=== PATIENT | female | born 1960 | race Caucasian/White ===

== ENCOUNTER 2023-03-19 07:28 | Day surgery (SDC) | payer OTHER, SELFPAY ==
[2023-03-12 15:25] VITALS: BMI 40.6
[2023-03-19] VITALS (7 sets, daily range): BP systolic 90–138; BP diastolic 30–77; PULSE 61–698; RESP 8–20; TEMP 35.7–36.2; O2SAT 96–99; BMI 40.6
--- NOTE | 2023-03-19 | DI.RAD.S_ITS ---
PROCEDURE: XR LUMBAR SPINE 2-3V INDICATIONS: L4-5 LAMINECTOMY TECHNIQUE: 2 fluoroscopic views of the lumbar spine were acquired. COMPARISON: None. FINDINGS: Bones: Intraoperative fluoroscopic images during laminectomy. Degenerative changes of the lumbar spine. IMPRESSION: Intraoperative fluoroscopic images during laminectomy. Degenerative changes of the lumbar spine. Dictated by: Adryan Lyons M.D. on 03/19/2023 at 10:26 Approved by: Adryan Lyons M.D. on 03/19/2023 at 10:28
[2023-03-19] MEDS: LACTATED RINGERS 1,000 ML 84 ML IV (08:25)
--- NOTE | 2023-03-19 08:31 | PM.PREOP ---
Pre-operative Note COVID-19 Criteria for continued procedure: Expected advancement of disease process, Possibility delay results in more complex future surgery or treatment, Increased loss of function, Continuing or worsening of significant or severe pain, Deterioration of the patient's condition or overall health and Delay expected to result in less-positive ultimate med/surg outcome Interval Note History & Physical reviewed/Exam performed by Physician: Yes Changes to H&P: No
[2023-03-19] MEDS: CEFAZOLIN 2 GM/100 ML PREMIX 100 ML IV (08:55)
--- NOTE | 2023-03-19 09:08 | SUR.OPER ---
Prone on spine table, head in foam head support, padded chest and pelvic supports, gel pad at knees, lower legs supported by pillows; nipples, genitalia and toes free of pressure, arms secured on foam padded arm boards at <90 degrees abduction. Tape over blanket at thigh secured to table.
[2023-03-19] MEDS: BUPIVACAINE 0.25% W/ EPI (PF) 10 ML VIAL 30 ML INJ (09:14)
--- NOTE | 2023-03-19 09:48 | PM.OP.1 ---
Operative Date/Time/Diagnoses Date of procedure: 03/19/23 Time of procedure: 08:40 Pre-op diagnosis: 1. L4-5 spinal stenosis with radiculopathy Post-op diagnosis: same Procedure & Clinicians Procedure: 1. L4-5 laminectomy with partial facetectomies Same procedure as scheduled: Yes Indications: Patient has been having chronic back pain and worsening lumbar radiculopathy. Patient failed multiple conservative management with worsening pain weakness and numbness in her lower extremity. Patient has been having difficulty performing activity of daily living. After discussing risks benefits of treatment options, patient elected proceed with surgery. Surgeon: Ingrid Miranda Steamfitter Supervisor: Corina Robles Click Yes if Unassisted: No Anesthesia Type: General Operative Notes Closure Type: primary Specimen(s): none sent Estimated Blood Loss (mL): 5 Blood products transfused: none Procedure in detail: Patient was seen in the preoperative area. Risks and benefits of the surgery was discussed with the patient. Informed consent was obtained from the patient and placed in the chart. Surgical site was marked. Patient was taken to the operative room. General anesthesia was administered. Prophylactic antibiotic was given to the patient less than 30 min before the incision was made. Patient was placed into a prone position on the Damon table. Patient's back was then prepped and draped in the sterile fashion. Time-out was performed at this time. Using AP and lateral C-arm imaging the interval between L4-5 was identified and marked on patient's back. A 1 inch incision 1 in from midline was made on the right side. The fascia was incised in line with skin incision. Globus MARS retractors was placed inside the incision and docked onto the L4 lamina. Using microsurgical technique and operating microscope, a L4 laminectomy was performed using a Kerrison rongeur. Liagamentum flavum was resected at the site of the laminotomy. Either side of the dura was exposed. Bilateral partial facetcomies was performed to further decompress the lateral recess. After the laminectomy was completed, the area medial lateral superior and inferior to the area of the laminectomy was inspected and explored using a micro curette. No other impinging structure was identified. The wound was then irrigated with sterile normal saline. 40 mg Depo-Medrol was placed into the epidural space. The deep fascia was closed with 1-0 Vicryl. The subcutaneous tissue was closed with 2-0 Vicryl. The skin was closed with 4-0 Monocryl. Patient tolerated the procedure well. There were no complications. Patient was transferred recovery room in stable condition. The Operation could not have been safely performed without compromising the technical result or length of the procedure, without the assistance of a skilled neurosurgical nurse practitioner. The neurosurgical nurse practitioner was medically necessary for proper positioning, retraction and manipulation of instruments, proper exposure, surgical preparation, and manipulation of tissue. Complications: none Post-operative Condition: stable Disposition: PACU Plan for aftercare: Discharge to home
[2023-03-19] MEDS: OXYCODONE IR 5 MG TABLET PO (10:19)
[2023-03-19] MEDS: ONDANSETRON 4 MG/2 ML INJ IV (10:55)
== END 2023-03-19 11:20 | disposition home or self-care (01) ==
PROVIDERS: PCP Family Medicine; Referring Provider Orthopaedic Surgery Orthopaedic Surgery of the Spine; Visit Provider Orthopaedic Surgery Orthopaedic Surgery of the Spine
PROC: (CPT 63047; principal; 2023-03-19 08:45)
DX: M48.062 Spinal stenosis, lumbar region with neurogenic claudication (principal); M54.16 Radiculopathy, lumbar region
CPT/HCPCS: 63047; 72100; 76000; J0330; J0690; J1100; J1170; J2405; J2704; J2920; J3010

== ENCOUNTER → 2023-08-14 12:22 | Outpatient (CLI) | payer OTHER, SELFPAY ==
--- NOTE | 2023-08-14 | DI.RAD.S_ITS ---
PROCEDURE: FL JOINT INJECTION LARGE LT INDICATIONS: Unilateral primary osteoarthritis, left hip COMPARISON: None. TECHNIQUE: The indications, alternatives, benefits, risks, and complications of the procedure were explained to the patient. Written informed consent was obtained and placed in the chart. The patient was placed in an appropriate position on the fluoroscopy table, and a site was chosen for percutaneous access under fluoroscopic guidance. The site was prepped and draped in a sterile fashion. Local anesthetic was administered using a 1% lidocaine solution. A hypodermic or spinal needle was then used to access the symptomatic joint. Intra-articular location of the needle tip was confirmed by injecting a small amount of contrast, followed by steroid administration. The needle was then withdrawn, and a bandage applied to the puncture site. FINDINGS: Joint injected: left hiop Medications injected: 4 mL of 40 mg/mL Kenalog and 0.5% Ropivacaine mixture. Patient's pain before injection: 7 out of 10. Patient's pain after injection: 3 out of 10. Complications: None. IMPRESSION: Successful fluoroscopically guided administration of steroid and anaesthetic solution into the left hip joint. Dictated by: Caesar Mattson M.D. on 08/15/2023 at 18:09 Approved by: Caesar Mattson M.D. on 08/15/2023 at 18:10
[2023-08-14] MEDS: LIDOCAINE 1% 20 ML INJ (13:33)
[2023-08-14] MEDS: ROPIVACAINE 0.5% PF 5 MG/ML 20ML VIAL 20 ML INJ (13:35)
[2023-08-14] MEDS: TRIAMCINOLONE 40 MG/ML VIAL INTRA-ARTI (13:35)
== END ==
LOC: RAD 12:23
PROVIDERS: Referring Provider Orthopaedic Surgery; Visit Provider Orthopaedic Surgery
DX: M16.12 Unilateral primary osteoarthritis, left hip (principal)
CPT/HCPCS: 20610; 77002

== ENCOUNTER → 2024-03-05 16:54 | Outpatient (CLI) | payer OTHER, SELFPAY ==
--- NOTE | 2024-03-05 16:56 | DI.MRI.S_ITS ---
PROCEDURE: MR LUMBAR SPINE WO CON INDICATIONS: SPINAL STENOSIS, LUMBAR REGION TECHNIQUE: Noncontrast sagittal T1 spin echo and T2 fast echo, sagittal STIR, and T2 fast spin echo through the lumbar spine. In cases with scoliosis, additional coronal T2 fast spin echo may be performed. COMPARISON: None. FINDINGS: Image quality: Excellent. Alignment and Curvature: Minimal retrolisthesis of L5-S1. There is straightening of lumbar lordosis. Bone Marrow: Marrow is of normal overall signal. There is an acute/subacute compression deformity the L1 vertebral body along its superior endplate resulting in approximately 25% height loss. Spinal Cord: Conus medullaris terminates at the L1 no level. Visualized cord demonstrates normal signal and size. Paraspinous Soft Tissues: No paravertebral masses. Renal cysts are seen within the left kidney measuring up to 6 mm. T12-L1: No spinal canal stenosis. No significant foraminal stenosis. There is bilateral facet arthropathy. L1-L2: No spinal canal stenosis or foraminal stenosis. There is bilateral facet arthropathy and ligamentum flavum hypertrophy. L2-L3: Dorsal disc bulge and ligamentum flavum hypertrophy result in mild narrowing of the spinal canal. Mild narrowing of the right foramen. The left foramen is patent. L3-L4: Dorsal disc bulge. No significant foraminal stenosis. There is bilateral facet arthropathy and ligamentum flavum hypertrophy. L4-L5: Dorsal disc bulge and ligamentum flavum hypertrophy results in mild narrowing of the spinal canal. Mild narrowing of the left foramen. The right neural foramen is patent. There is bilateral facet arthropathy. L5-S1: Dorsal disc bulge mildly effaces the ventral thecal sac. No foraminal stenosis. There is bilateral facet arthropathy and ligamentum flavum hypertrophy. IMPRESSION: 1. There is an acute/subacute compression deformity of the superior endplate of L1 resulting in approximately 25% height loss. 2. No significant spinal canal stenosis or foraminal stenosis. Dictated by: Patricio Mejia M.D. on 03/15/2024 at 12:19 Approved by: Patricio Mejia M.D. on 03/15/2024 at 12:43
== END ==
LOC: MRI 16:55
PROVIDERS: Referring Provider Orthopaedic Surgery Orthopaedic Surgery of the Spine; Visit Provider Orthopaedic Surgery Orthopaedic Surgery of the Spine
DX: M48.062 Spinal stenosis, lumbar region with neurogenic claudication (principal); M47.816 Spondylosis without myelopathy or radiculopathy, lumbar region; M43.8X6 Other specified deforming dorsopathies, lumbar region; N28.1 Cyst of kidney, acquired
CPT/HCPCS: 72148

== ENCOUNTER → 2025-02-16 15:51 | Outpatient (CLI) | payer OTHER, SELFPAY ==
--- NOTE | 2025-02-16 16:13 | EKG_ITS ---
[address] [address] Test Date: 2025-02-16 Pat Name: Nicci Galvez Department: [facility] Room: Gender: Female Retail Account Executive: ZOË : 1960 Requested By: Order Number: [id number] Reading MD: Ángel Mckinnon MD Measurements Intervals [place] Rate: 76 P: 64 VT: 182 QRS: 18 QRSD: 94 T: 24 QT: 398 QTc: 447 Interpretive Statements Normal sinus rhythm Electronically Signed On 02-17-2025 7:30:55 PDT by Ángel Mckinnon MD
[2025-02-16 16:19] LABS: Add Manual Diff / Slide Review NO; Hematocrit 37.8 % (36-46); Hemoglobin 12.6 g/dL (12.0-16.0); Lymphocytes Absolute Auto 2200 /uL (1100-4500); Mean Corpuscular HGB Conc 33.2 % (30-36); Mean Corpuscular Hemoglobin 26.1 PG (26-34); Mean Corpuscular Volume 78.7 fL (80-100); Platelet Count 417 X10^3/uL (150-400)
[2025-02-16 17:05] LABS: Hemoglobin A1C% w Est Avg Glu 5.8 % (4.0-6.0)
[2025-02-16 17:28] LABS: Vitamin D 25 Hydroxy (D3) 58.7 ng/mL (30.0-100.0)
[2025-02-16 22:12] LABS: Albumin 4.3 g/dL (3.5-5.0); Blood Urea Nitrogen 12 mg/dL (7-17); Calcium 9.2 mg/dL (8.4-10.2); Carbon Dioxide 28 mmol/L (22-32); Chloride 100 mmol/L (98-107); Estimated Glomerular Filt Rate > 60 mL/min (>60); Glucose 140 mg/dL (70-99); HEMOLYSIS < 15 (0-50); Potassium 4.0 mmol/L (3.4-5.1); Sodium 136 mmol/L (137-145)
[2025-02-16 22:19] LABS: Prealbumin 22.4 mg/dL (17.6-36.0)
== END ==
PROVIDERS: PCP Family Medicine; Referring Provider Orthopaedic Surgery Adult Reconstructive Orthopaedic Surgery; Visit Provider Orthopaedic Surgery Adult Reconstructive Orthopaedic Surgery
DX: Z01.812 Encounter for preprocedural laboratory examination (principal)
CPT/HCPCS: 36415; 80048; 82040; 82306; 83036; 84134; 85025; 93005

== ENCOUNTER → 2025-04-27 19:17 | Outpatient (CLI) | payer OTHER, SELFPAY ==
--- NOTE | 2025-04-27 19:19 | DI.MRI.S_ITS ---
PROCEDURE: MR LUMBAR SPINE WO CON INDICATIONS: HX OF LAMINECTOMY TECHNIQUE: Noncontrast sagittal T1 spin echo and T2 fast echo, sagittal STIR, and T2 fast spin echo through the lumbar spine. In cases with scoliosis, additional coronal T2 fast spin echo may be performed. COMPARISON: [facility], MR, MR LUMBAR SPINE WO CON, 03/05/2024, 17:46. FINDINGS: Alignment and Curvature: There is normal bony alignment. Bone Marrow: L1 compression fracture, unchanged from. Multilevel degenerative endplate changes Spinal Cord: Conus medullaris terminates at the L1 level. Visualized cord demonstrates normal signal and size. Paraspinous Soft Tissues: No paravertebral masses. T12-L1: Normal appearance. L1-L2: Normal appearance. L2-L3: Disc bulge and arthropathy. Dorsal epidural fat. Moderate central stenosis. No foraminal stenosis L3-L4: Disc bulge and arthropathy. Dorsal epidural fat. Moderate to severe central stenosis. No foraminal stenosis L4-L5: Disc bulge and arthropathy. Dorsal epidural fat. Moderate central stenosis. Moderate right and mild left foraminal stenosis L5-S1: Disc bulge and arthropathy. No central stenosis. Moderate left and mild right foraminal stenosis IMPRESSION: Multilevel degenerative disc disease, epidural lipomatosis and arthropathy results in varying degrees of central and foraminal stenosis including moderate to severe central stenosis at L3-4 Approved by: Paulino Corrales M.D. on 04/28/2025 at 10:44
== END ==
LOC: MRI 19:17
PROVIDERS: PCP Family Medicine; Referring Provider Physician Assistant Surgical; Visit Provider Physician Assistant Surgical
DX: M47.26 Other spondylosis with radiculopathy, lumbar region (principal); M47.27 Other spondylosis with radiculopathy, lumbosacral region; M51.16 Intervertebral disc disorders with radiculopathy, lumbar region; M51.17 Intervertebral disc disorders with radiculopathy, lumbosacral region; M48.061 Spinal stenosis, lumbar region without neurogenic claudication; M48.07 Spinal stenosis, lumbosacral region; E88.2 Lipomatosis, not elsewhere classified; R26.81 Unsteadiness on feet; Z98.890 Other specified postprocedural states
CPT/HCPCS: 72148

== ENCOUNTER 2025-05-23 06:05 | Day surgery (SDC) | payer OTHER, SELFPAY ==
[2025-05-16 07:53] VITALS: BMI 39.5
[2025-05-23] VITALS (15 sets, daily range): BP systolic 117–155; BP diastolic 60–78; PULSE 59–78; RESP 12–18; TEMP 35.8–36.9; O2SAT 91–100; BMI 39.5
--- NOTE | 2025-05-23 | DI.RAD.S_ITS ---
PROCEDURE: XR HIP W PEL IF DONE RT 2V INDICATIONS: RT MEG TECHNIQUE: Four views of each hip were acquired. COMPARISON: None. FINDINGS: Bones: There are no osseous abnormalities. SI and hip joints: Bilateral total hip prostheses are anatomically aligned. Soft tissues: No soft tissue swelling, calcification or mass. IMPRESSION: Bilateral total hip prostheses in anatomic alignment. No complication Dictated by: Ángel Pacheco M.D. on 05/24/2025 at 9:35 Approved by: Ángel Pacheco M.D. on 05/24/2025 at 9:35
[2025-05-23] MEDS: LACTATED RINGERS 1,000 ML 42 ML IV (07:16)
[2025-05-23] MEDS: SCOPOLAMINE 1 PATCH TOP (07:16)
--- NOTE | 2025-05-23 07:46 | P.HP_ITS ---
History of Present Illness History of Present Illness Chief complaint: Right MEG Anterior SDC Narrative: CHIEF COMPLAINT I'm here for my right total knee arthroplasty. SUBJECTIVE The patient has been experiencing severe right knee pain which has been refractory to multiple nonoperative modalities. The patient has expressed a preference for not using strong pain medications such as oxycodone unless it is absolutely necessary and only for breakthrough pain. The patient has also indicated that they have had medical anxiety and panic attacks in the past, which they have not typically discussed with others. The patient has been managing pain with Tylenol, baby aspirin, and Celebrex. The patient is concerned about potential medication interactions, particularly those that might affect mental function. SOCIAL HISTORY - The patient is involved in a [employer] group every Friday. PERTINENT PMH - History of medical anxiety and panic attacks. PRIOR HIP/KNEE PROCEDURES None PHYSICAL EXAM Knee Exam: No open wounds. TTP around knee. SILT L2-S1 ASSESSMENT Severe right knee osteoarthritis refractory to conservative management, necessitating right total knee arthroplasty. PLAN The patient is scheduled for a right total knee arthroplasty. I discussed the medication regimen postoperatively, including the use of Tylenol, baby aspirin, and Celebrex. The patient is advised to avoid strong pain medications unless necessary for breakthrough pain. I provided instructions on physical activity post-surgery, emphasizing the importance of ambulation to prevent blood clots while limiting steps to less than 1,000 per day initially. - Schedule for right total knee arthroplasty. - Continue baby aspirin and Celebrex as discussed. - Use Tylenol as needed up to 3,000 mg per day. - Avoid oxycodone unless breakthrough pain occurs. - Follow postoperative physical therapy instructions. SURGICAL PLAN The patient has exhausted, conservative measures and is likely a candidate for total knee arthroplasty. We will begin the preoperative optimization process in anticipation of eventually scheduling surgery. We will ensure that the patient is an appropriate candidate for this surgery by evaluating their laboratory results, EKG, baseline medical conditions and medications prior to scheduling the surgery. The risks and benefits of major elective surgery in the form of a knee replacement were discussed today in detail with the patient. All of the patient's questions were answered. Additional patient education materials regarding the risks, benefits, and outcomes associated with total knee arthroplasty were provided to the patient in an online patient counseling series which can be viewed at the following link: [email or web address]. There are both medical and surgical risks associated with total knee replacements and these have been outlined in detail to the patient. These medical risks include DVT/blood clots which can sometimes travel to the lung and be lethal as well as pneumonia, heart attacks, acute kidney injuries and other medical complications. The most serious surgical complication is a periprosthetic joint infection which can be very difficult to treat and requires repeat surgery. The 5 year mortality of a periprosthetic joint infection is 25% in some studies. The most common reasons for repeat knee surgery - also known as revision surgery - have also been provided to the patient with data from the [place] Joint Replacement Registry. We have also discussed that other less common medical and surgical complications can occur. Additionally, we have reviewed the patient satisfaction rate of 85% with total knee arthroplasty which means that even if there are no major complications with their knee replacement there is a 15% risk they will not be satisfied with their final result. I encouraged the patient to followup with additional questions at future visits after they have had time to review and consider the risks and benefits of this surgery before moving forward with it. PLANNED SURGICAL PROCEDURE AND IMPLANTS: Right total knee arthroplasty using cemented Michel Persona with unresurfaced patella PERIOPERATIVE CONSIDERATIONS: - Monitor for anxiety during perioperative period. - Avoid opioids unless there is breakthrough pain. POSTOPERATIVE DVT PROPHYLAXIS: Aspirin 81 mg BID XRAYS AT NEXT VISIT: Long-leg scanogram PLAIN LANGUAGE SUMMARY We are planning for your right total knee replacement surgery. You've tried many treatments already, and this surgery should help relieve your knee pain. We'll make sure you're ready for surgery by checking your medical conditions and medication. After surgery, you'll take baby aspirin to prevent blood clots and continue with your current pain management plan. Avoid using oxycodone unless absolutely necessary. We'll start gentle movements and slowly increase activity to help with healing while avoiding too many steps at first. If you have any questions, feel free to ask at your follow-up visits. FOLLOWUP - Follow up as needed with no specific imaging required unless otherwise indicated. [facility], LAT[facility] Medical History (Updated 05/17/25 @ 14:54 by Stormy Morrison RN) SOTEOR on CPAP Anesthesia complication Osteoporosis GERD (gastroesophageal reflux disease) Rheumatoid arthritis Back pain Melanoma IBS (irritable bowel syndrome) Allergies HTN (hypertension) Pre-diabetes Surgical History (Updated 05/16/25 @ 08:55 by Stormy Morrison RN) Hx of colonoscopy Hx of arthroscopy of shoulder Hx of cholecystectomy History of total left hip replacement (07/21/24) Hx of laminectomy (03/19/23) H/O tubal ligation Hx of breast reduction, elective H/O nasal septoplasty Social History household members: spouse Smoking Status: Never smoker alcohol intake: current Meds Home Medications and Allergies Home Medications ?Medication ?Instructions ?Recorded ?Confirmed ?Type hydrochlorothiazide 25 mg tablet 25 mg PO DAILY 05/23/25 History losartan 25 mg tablet 25 mg PO DAILY 03/12/2302/09 History multivitamin 1 tab PO DAILY 03/12/23 09/2 05/12 History meloxicam 7.5 mg tablet 7.5 mg PO DAILY PRN post-op pain 05/04/25 05/16/25 Rx #30 tabs pantoprazole 40 mg tablet,delayed 40 mg PO DAILY Take while using 05/04/25 05/16/25 Rx release Meloxicam/Mobic #30 tabs fexofenadine 180 mg tablet 180 mg PO DAILY 05/16/25 History fluconazole 100 mg tablet 100 mg PO DIRECTED 05/23/25 History losartan 50 mg-hydrochlorothiazide 1 tab PO DAILY bloo d pressure 05/16/25 05/23/25 History 12.5 mg tablet Allergies Allergy/AdvReac Type Severity Reaction Status Date / Time Latex, Natural Rubber Allergy Intermediate Rash Verified 05/23/25 07:07 Exam Vital Signs (past 8 hours): - 05/23/25 06:56 Temperature 97.2 F L Pulse Rate 67 Respiratory Rate 16 Blood Pressure 139/75 Pulse Oximetry 97 Oxygen Delivery Method Room Air Oxygen Delivery Method Room Air Assessment & Plan Time-Based Coding :: [TOTAL MINUTES] spent with patient and on the chart (including review of chart, obtaining history, exam, reviewing outside data, placing orders, documenting exam and treatment plan, and counseling patient) on [DATE]. PROFEE Lens Inspector Document charge(s): No
--- NOTE | 2025-05-23 07:47 | PM.PREOP ---
Pre-operative Note Interval Note History & Physical reviewed/Exam performed by Physician: Yes Changes to H&P: No
--- NOTE | 2025-05-23 07:56 | DI.RAD.S_ITS ---
PROCEDURE: XR HIP W PEL IF DONE RT 2V INDICATIONS: MEG TECHNIQUE: AP pelvis and lateral view of the hip acquired. COMPARISON: [facility], CR, XR HIP W PEL RT 2V, 05/23/2025, 8:58. FINDINGS: Bones: Patient is status post right hip arthroplasty, with hardware components in expected positions. The hip joint appears congruent. The visualized bony structures appear intact. Status post prior left hip arthroplasty with prosthetic components in appropriate position. Soft tissues: Overlying postoperative changes are noted. No suspicious soft tissue densities. IMPRESSION: Expected post-operative appearance of interval right hip arthroplasty. Approved by: Lyndsey Nails M.D.,Ph.D. on 05/23/2025 at 11:16
[2025-05-23] MEDS: ACETAMINOPHEN IV 1,000 MG/100 ML VIAL 400 MG IV (08:22)
--- NOTE | 2025-05-23 08:46 | SUR.OPER ---
Supine on padded [address] [place] table with bilateral legs secured in padded positioning boots and suspended in positioning spars, operative leg in traction per surgeon. Head on one pillow. both arms on n secured on padded armboard <90 degrees abduction. . Padded perineal post in place per surgeon.
[2025-05-23] MEDS: KETOROLAC 30 MG/ML VIAL 15 MG INJ (08:56)
--- NOTE | 2025-05-23 09:57 | P.OP_ITS ---
Operative Date/Time/Diagnoses Date of procedure: 05/23/25 Time of procedure: 07:45 Pre-op diagnosis: Right hip osteoarthritis Post-op diagnosis: same Procedure & Clinicians Procedure: Right total hip arthroplasty Same procedure(s) as scheduled: Yes Surgeon: Paulino Herbert Assisted?: Yes Forensic Specialist: Lynsey Easton Anesthesia Type: General and Local Operative Notes Findings: Severe arthritis Closure Type: primary Applied: implant(s) Estimated Blood Loss (mL): 300 Procedure in detail: 1. Right Uncemented Direct Anterior Michel Total Hip Arthroplasty (71631) 2. Computer-Assisted Musculoskeletal Surgical Navigational Orthopedic Procedure Using Fluoroscopic Image Guidance (0054T) Implants: * G7 PPS size 56 cup? * Stevenson femoral stem size 21-125 * 36 mm -3.5 ceramic femoral head? Procedure Summary: This 64-year-old female patient had previously undergone a contralateral total hip arthroplasty. I noted on her preoperative imaging that she had a highly valgus neck shaft angle in her femur. I therefore utilized a Stevenson cone during today's surgery in order to restore her valgus anatomy. I initially trialed with a size 19 and a 0 head and noted that it was slightly long and also that it was in slight varus so I upsized to a size 21 and repeated the trialing process and downsized to a -3.5 head. The final construct had equal leg length as compared to the other side but less offset as I had intended based on her valgus neck shaft angle on the operative side. A conjoined tendon release was required for femoral access given the straight shot necessary for utilization of a Stevenson cone Procedure in Detail: This patient was seen preoperatively and evaluated for hip pain which was refractory to numerous nonoperative treatment modalities. Their hip pain correlated with radiographic changes demonstrating significant degeneration in the hip joint. The risks and benefits of continued nonoperative management versus operative management were discussed at length and all of the patient?s questions were answered. Additional educational materials providing further details beyond our discussion in clinic were provided via a publicly available patient education video which included the incidence of medical complications associated with total hip arthroplasty, reasons for revision following total hip arthroplasty, and patient satisfaction rates following total hip arthroplasty. With this understanding of the risks inherent to the procedure, the patient elected to move forward with operative management. Following preoperative optimization, the patient was scheduled for surgery. The patient was met in the preoperative holding area the day of the procedure and all questions were answered. The patient?s nares were swabbed in order to decolonize them from MRSA. Informed consent was signed and the right limb was marked with indelible ink.? The patient was brought back to the operating room where anesthesia was induced. The patient was transferred to the Nelson table and all bony prominences were padded. The operative site was prepped and draped in the usual sterile fashion. Prior to incision, tranexamic acid and cefazolin were administered. Operative templating images were displayed demonstrating the anticipated implant sizes and correct operative extremity. A timeout procedure was performed verifying the patient?s identity, medical comorbidities, allergies, relevant medications, anesthesia type and the surgical plan. All present were in agreement. The assistance of a physician automotive service assistant was required for positioning, room setup, soft tissue retraction and wound closure. Without this assistance, the procedure would have been significantly more challenging and time consuming.?? A direct anterior approach to the hip was utilized. This was performed with a longitudinal incision through a Heuter interval. The incision was planned 2 cm distal and 2 cm lateral to the ASIS extending towards the lateral patella, in line with the muscle body of the TFL. Following incision, the subcutaneous tissue was dissected while taking care to avoid injury to the lateral femoral cutaneous nerve. The fascia overlying the TFL was identified by dissecting off the overlying fat and identifying perforating vessels to the TFL. The TFL fascia was incised and dissected away from the medial border of the TFL. A retractor was placed over the superior femoral neck between the abductors and the hip capsule and used to reflect the TFL laterally. A Tyler self-retainer was then placed in the distal aspect of the wound between the TFL and the rectus femoris. This was tensioned to open up the direct anterior interval and the lateral circumflex vessels were identified and coagulated using electrocautery. The floor of the TFL fascia was incised, exposing the pericapsular fat overlying the hip capsule. A second cobra retractor was placed on the inferior femoral neck. A retractor was placed on the anterior wall of the acetabulum and used to tension the reflected head of rectus femoris, which was then released in order to limit soft tissue tension. A capsulotomy was made in the midline of the anterior hip capsule in line with the femoral neck ending at the vastus tubercle. The anterior retractor was removed as soon as the capsulotomy was completed in order to limit the amount of time that a soft tissue retractor remained on the anterior wall and limit tension on the femoral nerve. Tag stitches were placed in the superior and inferior leaflets of the hip capsule. An Araman soft tissue retractor was introduced over the tag stitches and tensioned in the interval between the rectus femoris and the TFL in order to retract and protect those muscles. The cobra retractors were replaced intracapsularly, with one over the superior neck in the pocket created by the base of the greater trochanter and the other on the femoral head. The capsulotomy was extended laterally to the base of the greater trochanter and medially to the lesser trochanter. This required externally rotating the hip. Once the lesser trochanter had been identified, a neck cut was planned according to measurements from preoperative templating. A ruler was cut at the length measured between the superior aspect of the lesser trochanter and the collar of the prosthesis. This line was extended towards the inferior aspect of the lateral cobra retractor to plan a cut which would leave minimal residual femoral neck laterally. The neck was cut at 60 degrees of external rotation along that line. A second cut was performed to remove a large napkin ring and facilitate head extraction. The napkin ring cut and femoral head were removed.?? A broad anterior wall retractor was placed between the labrum and the anterior capsule so that the anterior capsule would prevent capturing and pinching the femoral nerve anteriorly. An additional retractor was placed on the posterior wall. External rotation and traction were applied through the Nelson table so that the cut surface of the femoral neck would not restrict access to the acetabulum. The labrum was excised sharply and the pulvinar was excised with electrocautery to limit bleeding from branches of the obturator artery. Acetabular reamers were selected based on preoperative templating and measurements of the excised femoral head. These were introduced into the acetabulum. Fluoroscopy was utilized to replicate a standing AP pelvis radiograph by centering over the pelvis, rotating until there was appropriate symmetry between the obturator foramen, and introducing caudal tilt to match the position of the pubic symphysis relative to the sacrococcygeal junction according to the patient?s anatomy. Once satisfied with the reaming depth corresponding to the preoperative template and the pinch fit between the columns, an appropriate sized acetabular cup was selected which would provide 1 mm of press-fit. This cup was introduced and manipulated until appropriate abduction and anteversion angles were obtained with careful attention to appropriate abduction and anteversion angles as evaluated by the position of the cup relative to the anterior and posterior sweet of the acetabulum and the AP fluoroscopy which recreated the patient?s standing radiograph. The cup was impacted into place. Peripheral osteophytes were removed. The acetabular liner was then placed with care to ensure locking of the locking mechanism. Attention was then turned to the femur. All retractors were removed, traction was released, a retractor was placed in the interval between the hip capsule and the gluteus minimus. The lateral capsule was released using electrocautery. Traction was released and a Nelson hook was placed posteriorly around the proximal femur at the level of the vastus ridge. The table height was lowered in order to restrict the tension on the anterior structures during hip hyperextension to limit the risk of femoral nerve palsy. With traction off and the hip at 90 degrees of external rotation, the hip was hyperextended and adducted while manually elevating the femur away from the acetabulum with the Nelson hook to avoid hooking the greater trochanter on the pelvis. An asymmetric retractor was placed over the calcar and a broad double-pronged retractor was placed over the greater trochanter. The tag stitch capturing the lateral leaflet of the capsule was moved to the medial side, leaving the conjoined and piriformis tendons isolated in the face of the greater trochanter. The hip was externally rotated and elevated. A release of the conjoined tendon was necessary in order to obtain adequate exposure for broaching. The canal was opened with an opening broach and a rasp was used to remove cancellous bone. A rongeur was used to remove the residual lateral bone at the base of the greater trochanter to avoid placing the stem in varus. The femur was then broached to the appropriate sized stem yielding good rotational fit and fill of the canal as well as appropriate version of the stem trial. Neck and head trials were placed, all retractors were removed and the hip was returned to neutral abduction and extension. I then reduced the hip and manually trialed it before changing surgical gloves. Initial trialing was performed with a size 19 broach, a 125 degree neck and a +0 head. I initially manually externally rotated the hip and found no instability. I then locked the hip in 45 degrees of external rotation and dropped it to the floor with traction off which demonstrated no instability. The ortho grid software was utilized to overlay the nonoperative side on the operative side. I noted that the operative site was in slight varus indicating that the stem was likely slightly undersized. I also noted that it was slightly long relatives in operative side. The hip was dislocated and I returned to the broaching position. Based on my evaluation during initial trialing I planned to upsize the stem. I was able to upsize to a size 21 and sank this down to a slightly higher point then the point at which the size 19 had rested. The definitive stem was placed. I placed a head trial for a -3.5 head and repeated the trialing process. On the AP overlay the leg lengths were now more appropriate and offset was still less than the contralateral side. Stability was excellent with no ability to dislocate the hip with maximum manual external rotation of approximately 100? or with a 45 degree drop test. I returned to the broaching position. And the trunnion was cleaned and dried. I placed a ceramic head onto the trunnion and impacted it into place on the Dhillon taper.?? All retractors were removed and the hip was reduced. A dilute mixture of betadine and peroxide was used to bathe the soft tissues during final fluoroscopic assessment. Appropriate component positioning was confirmed on an AP pelvis radiograph with the operative and nonoperative legs in 40 degrees of external rotation, evaluating leg length and offset. Appropriate stem fill was evaluated on AP and lateral hip radiographs. No previously unrecognized fractures were identified on these radiographs. There was no hip instability with maximum (100?) external rotation as well as a 45 degree drop test. The hip was copiously irrigated with pulse lavage. The capsule was closed with absorbable interrupted suture. The TFL fascia was closed with barbed suture while carefully protecting the lateral femoral cutaneous nerve from entrapment. A mixture of Ropivacaine, Epinephrine and Toradol was infiltrated throughout the soft tissues. The skin was closed with 2-0 and 3-0 sutures. Surgical glue was applied and a soft dressing was placed.??The sponge, instrument and needle counts were reported as being correct at the end of the case.??No obvious complications occurred. The patient was transferred from the Nelson table back to a stretcher. The patient emerged from anesthesia without difficulty and was taken to the PACU in a stable condition.? Plan for aftercare: * No hip precautions * Weightbearing as tolerated * Aspirin 81 twice per day for DVT prophylaxis * Anticipate discharge home tomorrow * Multimodal pain regimen with no IV opioids ordered * Follow up at [facility] in 2 weeks Complications: none Post-operative Condition: stable Disposition: PACU
[2025-05-23] MEDS: ONDANSETRON 4 MG/2 ML INJ IV (11:00)
[2025-05-23] MEDS: hydrOXYzine 50 MG/ML INJ 25 MG IM (11:06)
[2025-05-23] MEDS: ACETAMINOPHEN 325 MG TABLET 650 MG PO ×2 (13:33→18:42)
[2025-05-23] MEDS: LACTATED RINGERS 1,000 ML 100 ML IV ×2 (13:42→21:25)
--- NOTE | 2025-05-23 15:13 | PT.IIE ---
Current Diagnoses Unilateral primary osteoarthritis, right hip (05/23/25) Surgery Performed Operation Date: 05/23/25 08:00 Actual Procedures p Total Hip Arthroplasty/Anterior Approach(Right) - Paulino Herbert MD Surgical History (Last Updated 05/16/25 @ 08:55 by Stormy Morrison, RN) H/O nasal septoplasty H/O tubal ligation History of total left hip replacement (07/21/24) Hx of arthroscopy of shoulder Hx of breast reduction, elective Hx of cholecystectomy Hx of colonoscopy Hx of laminectomy (03/19/23) Medical History (Last Updated 05/17/25 @ 14:54 by Stormy Morrison, RN) Allergies Anesthesia complication Back pain GERD (gastroesophageal reflux disease) HTN (hypertension) IBS (irritable bowel syndrome) Melanoma SOTERO on CPAP Osteoporosis Pre-diabetes Rheumatoid arthritis Physical Therapy Inpatient Evaluation/Re-Eval M1 PT/OT-IP Prior Functional Status Start: 05/23/25 14:15 Freq: NEEDED Status: Active Protocol: Document 05/23/25 14:15 [facility] (Rec: 05/23/25 15:13 [facility] [id number]) Medical Review Prior Functional Status Medical History Yes Reviewed Diet/Fluid Regular Consistency Communication WNL Mobility and Gait no AD Activities of Daily couldn't bend completely down to feet. could bath self, Living and IADL's needed help with socks and shoes. Social History Household Members children Living Arrangements House Number of Floors ( Two Floors Floors) Number of Stairs To no GERMÁN but she will stay on bottom floor-staying with Enter/Railing? dgt-can stay until she recovers-showers are upstairs- plans to sponge bath intially Home Environment Standard Height Toilet,Walk in Shower Home Equipment Front Wheel Walker,Straight Cane,Raised Toilet Seat w/ Armrests,Plant Operator Control Room Operator,Sock Aid,Grab Bars In Shower Employment Status Retired Additional Social dgt will have off during time she is staying History Comment M2 PT-IP Current Condition Start: 05/23/25 14:15 Freq: NEEDED Status: Active Protocol: Document 05/23/25 14:15 [facility] (Rec: 05/23/25 15:13 [facility] [id number]) Physical Therapy Current Condition Current Condition Evaluation Date 05/23/25 Treatment Diagnosis R MEG ant M3 PT-IP Subjective Start: 05/23/25 14:15 Freq: NEEDED Status: Active Protocol: Document 05/23/25 14:15 [facility] (Rec: 05/23/25 15:13 [facility] [id number]) Subjective Physical Therapy Visit Type Type Initial Evaluation Visit Start Time 14:15 Visit Stop Time 15:05 Number of CARPENTRY FOREMAN Visits 0 M4 PT-IP Mobility and Gait Start: 05/23/25 14:15 Freq: NEEDED Status: Active Protocol: Document 05/23/25 14:15 [facility] (Rec: 05/23/25 15:13 [facility] [id number]) PT-Bed Mobility Assessment Supine to Sit Supine to Sit Standby Assistance Sit to Supine Sit to Supine Standby Assistance Scooting Scooting to Edge of Standby Assistance Bed PT-Transfer Assessment Sit to and From Stand Sit to and from Contact Guard Assistance,Minimal Assistance Stand Equipment Transfer Assistive Gait Belt,Front Wheeled Walker Device Orthotic/Prosthetic No Devices or Brace: Comments Mobility Comments supine BP 132/64 seated 132/62, mod cues for supine to sit with SBA then SBA scoot to EOB, sit to stand w/cues and min A and amb in room 30ft with CGA and FWW then sat on commode CGA w/cues for hands then stood CGA w/ cues for hands and wiped SBA at FWW then amb 10 ft to bed and did sit to supine SBA. Left with call light in reachand bed alarm on Gait Assessment Gait Gait Assistance Contact Guard Assist Required: Distance (Feet) 40 Able to Maintain Yes Weight Bearing Status During Gait Assistive Devices Assistive Device Gait Belt,Front Wheeled Walker Gait Deviations General Gait Pattern Antalgic Factors Limiting Gait Function Factors Limiting Decreased Activity Tolerance,Decreased Strength,Pain Gait Function PT-Balance Assessment Sitting Balance and Reactions Static Sitting Normal Balance Ability Dynamic Sitting Normal Balance Ability Standing Balance and Reactions Static Standing Good Balance Ability Dynamic Standing Good Balance Ability Device Used FWW M5 PT-IP Objective Assessments Start: 05/23/25 14:15 Freq: NEEDED Status: Active Protocol: Document 05/23/25 14:15 [facility] (Rec: 05/23/25 15:13 [facility] [id number]) Orientation Orientation/Cognition Level of Alertness Alert Language Function No Deficits Noted Ability Safety Awareness Understands Safety Issues Memory Description No Deficits Noted Gross Range of Motion Lower Extremity ROM Assessment Right Impaired Strength Lower Extremity Strength Assessment Right Impaired Hip 3/5 grossly M6 PT-IP Treatment Start: 05/23/25 14:15 Freq: NEEDED Status: Active Protocol: Document 05/23/25 14:15 [facility] (Rec: 05/23/25 15:13 [facility] [id number]) Physical Therapy Treatment Exercises Exercises Ankle Pumps,Gluteal Sets,Quad Sets,Heel Slides Education Education Provided Precautions,Weight Bearing Status,Post-Op Packet,Safety M7 PT-IP Assessment and Plan Start: 05/23/25 14:15 Freq: NEEDED Status: Active Protocol: Document 05/23/25 14:15 [facility] (Rec: 05/23/25 15:13 [facility] [id number]) PT Summary Assessment and Plan Potential Rehabilitation Good Potential Status of Condition Evolving at Evaluation Summary Impairments Pain,ROM,Strength,Balance,Bed Mobility,Transfers,Gait, Activity Tolerance Assessment Summary Pt presents day of R MEG ant approach with good pain control and motivate to return to activity. She has supportive dgt to stay with as long as she needs. She did well iwth mobility requiring min A for first sit to stand but only CGA the 2nd time. She improved with gait w/cues and inc time. She would benefit from skilled PT to improve her mobility to reutrn home safely. Goals Bed Mobility Goal Independent Transfer Goal Independent Gait Goal Independent,Front Wheel Walker Gait Distance 100ft Other Goals up/down 5 steps SBA 1 rail CGA Days to Meet Goals 5 Frequency of Treatment Frequency Of Twice a Day Treatment Treatment Plan Physical Therapy Bed Mobility Training,Transfer Training,Gait Training, Treatment Plan Therapeutic Exercise,Balance Retraining,Discharge Planning,Neuromuscular Re-ed,Manual Therapy Weight Bearing Status Weight Bearing Weight Bear as Tolerated Status Recommendations To Nursing Amount of Assist 1 Person Assist Needed Discharge Recommendations PT Discharge Home with Assistance,Outpatient PT Recommendations Equipment Needed for shower chair Home Before Discharge Transportation Needs Private Vehicle at Discharge - PT assist 1
--- NOTE | 2025-05-23 15:25 | P.PN_ITS ---
Subjective Subjective Interval history: I came by to check on Nicci in the hospital porter. I found her sitting on the side of her bed combing her hair. She reports that her pain is well-controlled. She has had a physical therapy session which per the physical therapist went well with good ambulation. She is somewhat somnolent but this has been improving since surgery. She plans to stay overnight tonight. She has intact sciatic and femoral nerve function as evidenced by ability to form a straight leg raise and flex and extend her hallux and ankle. She has a dressing that is clean dry and intact. We plan for discharge home tomorrow morning Exam Vital Signs (past 8 hours): - 05/23/25 10:35 05/23/25 10:40 05/23/25 10:45 Temperature 98.4 F Pulse Rate 78 72 73 Respiratory Rate 14 12 14 Blood Pressure 148/76 H 149/76 H 138/70 Pulse Oximetry 95 93 91 Oxygen Delivery Method Room Air Room Air Room Air Oxygen Flow Rate 05/23/25 10:50 05/23/25 10:55 05/23/25 11:05 Temperature 98.4 F Pulse Rate 73 69 66 Respiratory Rate 12 13 12 Blood Pressure 144/74 H 148/78 H 144/77 H Pulse Oximetry 95 95 99 Oxygen Delivery Method Nasal Cannula Nasal Cannula Nasal Cannula Oxygen Flow Rate 2 2 2 05/23/25 11:15 05/23/25 11:24 05/23/25 11:30 Temperature 96.7 F L Pulse Rate 64 63 61 Respiratory Rate 13 12 17 Blood Pressure 155/74 H 138/69 150/73 H Pulse Oximetry 100 100 97 Oxygen Delivery Method Nasal Cannula Nasal Cannula Oxygen Flow Rate 2 2 1 05/23/25 12:00 05/23/25 12:32 05/23/25 13:30 Temperature 96.4 F L Pulse Rate 59 L 59 L 71 Respiratory Rate 17 18 18 Blood Pressure 121/65 127/68 120/67 Pulse Oximetry 99 98 99 Oxygen Delivery Method Oxygen Flow Rate 1 1 1 05/23/25 14:30 Temperature Pulse Rate 60 Respiratory Rate 17 Blood Pressure 132/63 Pulse Oximetry 97 Oxygen Delivery Method Oxygen Flow Rate 1 Oxygen Delivery Method Nasal Cannula Oxygen Flow Rate 1 [facility] Medical History (Updated 05/17/25 @ 14:54 by Stormy Morrison RN) SOTERO on CPAP Anesthesia complication Osteoporosis GERD (gastroesophageal reflux disease) Rheumatoid arthritis Back pain Melanoma IBS (irritable bowel syndrome) Allergies HTN (hypertension) Pre-diabetes Surgical History (Updated 05/16/25 @ 08:55 by Stormy Morrison RN) Hx of colonoscopy Hx of arthroscopy of shoulder Hx of cholecystectomy History of total left hip replacement (07/21/24) Hx of laminectomy (03/19/23) H/O tubal ligation Hx of breast reduction, elective H/O nasal septoplasty Social History household members: children Smoking Status: Never smoker alcohol intake: current Assessment & Plan Time-Based Coding :: [TOTAL MINUTES] spent with patient and on the chart (including review of chart, obtaining history, exam, reviewing outside data, placing orders, documenting exam and treatment plan, and counseling patient) on [DATE]. [employer] Material Dist[employer] Document charge(s): No
--- NOTE | 2025-05-23 15:48 | OT.IP.EVAL ---
Current Diagnoses Unilateral primary osteoarthritis, right hip (05/23/25) Surgery Performed Operation Date: 05/23/25 08:00 Actual Procedures p Total Hip Arthroplasty/Anterior Approach(Right) - Paulino Herbert MD Past Medical History (Last Updated 05/17/25 @ 14:54 by Stormy Morrison, RN) Allergies Anesthesia complication Back pain GERD (gastroesophageal reflux disease) HTN (hypertension) IBS (irritable bowel syndrome) Melanoma SOTERO on CPAP Osteoporosis Pre-diabetes Rheumatoid arthritis Surgical History (Last Updated 05/16/25 @ 08:55 by Stormy Morrison RN) H/O nasal septoplasty H/O tubal ligation History of total left hip replacement (07/21/24) Hx of arthroscopy of shoulder Hx of breast reduction, elective Hx of cholecystectomy Hx of colonoscopy Hx of laminectomy (03/19/23) Occupational Therapy Inpatient Evaluation/Re-Eval M1 PT/OT-IP Prior Functional Status Start: 05/23/25 14:15 Freq: NEEDED Status: Active Protocol: Document 05/23/25 15:36 ZAIRE (Rec: 05/23/25 15:48 ZAIRE [id number]) Medical Review Prior Functional Status Medical History Yes Reviewed Diet/Fluid Regular Consistency Communication WNL Mobility and Gait no AD Activities of Daily couldn't bend completely down to feet. could bath self, Living and IADL's needed help with socks and shoes. Social History Household Members children Living Arrangements House Number of Floors ( Two Floors Floors) Number of Stairs To no GERMÁN but she will stay on bottom floor-staying with Enter/Railing? dgt-can stay until she recovers-showers are upstairs- plans to sponge bath intially Home Environment Standard Height Toilet,Walk in Shower Home Equipment Front Wheel Walker,Straight Cane,Raised Toilet Seat w/ Armrests,Hot Knife Foxing Cutter,Sock Aid,Grab Bars In Shower Employment Status Retired Additional Social dgt will have off during time she is staying History Comment M2 OT-IP Current Condition Start: 05/23/25 15:35 Freq: Status: Active Protocol: Document 05/23/25 15:36 ZAIRE (Rec: 05/23/25 15:48 ZAIRE [id number]) Occupational Therapy Current Condition Current Condition Evaluation Date 05/23/25 Treatment Diagnosis R MEG anterior Diagnosis Onset Date 05/23/25 Weight Bearing Status Weight Bearing Weight Bear as Tolerated Status M3 OT- IP Subjective and Pain Start: 05/23/25 15:35 Freq: Status: Active Protocol: Document 05/23/25 15:36 ZAIRE (Rec: 05/23/25 15:48 [facility] [id number]) OT- Subjective Occupational Therapy Visit Type Type Initial Evaluation Visit Start Time 15:15 Visit Stop Time 15:40 Notes Pt reclined in bed on entrance of OT, agreeable to OT eval. Occupational Therapy Visit Comments Patient Comments I am a little lightheaded, but I'm feeling much better . Patient/Caregiver to go home Goals OT Pain Assessment Pain When Pain Assessed After Treatment Pain Present Pain Present Denied Pain M4 OT- IP ADL's Start: 05/23/25 15:35 Freq: Status: Active Protocol: Document 05/23/25 15:36 ZAIRE (Rec: 05/23/25 15:48 [facility] [id number]) OT MDH-Reeo-Neghhrs Comments OT Self-Feeding not observed Comments OT ADL-Grooming General Evaluation Grooming Ability Standby Assistance Areas Needing Retrieving/Set-up of Grooming Items Assistance Comments OT Grooming Comments pt brushed hair while EOB on setup OT ADL-Oral Care General Eval Oral Care Ability Standby Assistance Areas of Assistance Retrieving/Set-Up of Items Comments Oral Care Comments pt performs oral hygiene while EOB on setup of supplies OT ADL-Dressing General Eval Lower Body Dressing Total Assistance Ability Comments OT Dressing Comments Pt needed total A for LB dressing. Pt uses AE for LB dressing at home. OT ADL-Toileting Comments OT Toileting not observed, pt reports she just went Comments OT ADL-Bathing Comments OT Bathing Comments not observed M5 OT- IP IADL's Start: 05/23/25 15:35 Freq: Status: Active Protocol: Document 05/23/25 15:36 ZAIRE (Rec: 05/23/25 15:48 [facility] [id number]) OT-Instrumental Activities of Daily Living Deficits IADL Deficits No Deficits Identified Home Safety Awareness Awareness of Need Good Awareness for Assistance at Home Ability to Problem Able to Problem Solve Solve Emergency Situations Medication Management Medication No Deficits Identified Management Money Management Money Management No Deficits Identified Meal Preparation Meal Preparation Caregiver Provides Supervision Meal Preparation pts dtr will assist until pt is able Comments Client Care Manager Client Care Manager Caregiver Provides Assist Client Care Manager pts dtr will assist until pt is able Comments Driving Driving Caregiver Provides Assist Driving Comments pts dtr will assist until pt is able M6 OT- IP Functional Cognition Start: 05/23/25 15:35 Freq: Status: Active Protocol: Document 05/23/25 15:36 ZAIRE (Rec: 05/23/25 15:48 [facility] [id number]) Cognitive Factors Limiting Selfcare Function Cognitive Ability Level of Alertness Alert Patient Orientation Name,Age,Birthday,Month,Date,Year,Day of Week,Place, Situation Attention Span Capable of Focused Attention,Capable of Sustained Ability Attention Ability to Follow Able to Follow One Step Commands,Able to Follow Multi- Commands Step Commands Memory Description No Deficits Noted Safety Awareness No Deficits Noted Problem Solving No deficits Noted Ability Executive Function No Deficits Noted Ability Abstract Thinking No Deficits Noted Ability OT- Vision and Hearing OT- Hearing Assessment OT- Hearing WFL Assessment OT- Vision Assessment Visual Acuity WFL,Glasses All The Time M7 OT- IP Mobility and Balance Start: 05/23/25 15:35 Freq: Status: Active Protocol: Document 05/23/25 15:36 [facility] (Rec: 05/23/25 15:48 [facility] [id number]) OT- Bed Mobility Assessment Supine to Sit Supine to Sit Assist Standby Assistance Sit to Supine Sit to Supine Assist Standby Assistance Scooting Scooting to Edge of Standby Assistance Bed Scooting Up and Down Standby Assistance in Bed OT-Transfer Assessment Sit to and From Stand Sit to and from Contact Guard Assistance Stand Technique Transfer Destination Bed Devices Transfer Assistive Gait Belt,Front Wheeled Walker Devices Comments Mobility Comments Pt on 1 L O2, 96% sat. Supine BP 125/58, sitting 130/61 , standing 139/65. Pt performs bed mobility with SBA and sit<>stand with CGA. OT- Gait Assessment Gait Gait Assistance Contact Guard Assist Required: Distance (Feet) 15 Assistive Devices Assistive Device Gait Belt,Front Wheeled Walker Comments Gait Ability Pt amb throughout room with CGA Comments OT- Balance Assessment Sitting Balance and Reactions Static Sitting Normal Balance Ability Dynamic Sitting Good Balance Ability Standing Balance and Reactions Static Standing Good Balance Ability Dynamic Standing Good Balance Ability M8 OT- IP Objective Assessments Start: 05/23/25 15:35 Freq: Status: Active Protocol: Document 05/23/25 15:36 ZAIRE (Rec: 05/23/25 15:48 ZAIRE [id number]) OT Gross Range of Motion Upper Extremity Range of Motion Assessment Within Functional Limits OT Strength Upper Extremity Strength Assessment Within Functional Limits Hand Wheelchair Van Driver Strength Hand Dominance Right OT-Muscle Tone Assessment Muscle Tone WNL Yes M9 OT- IP Assessment and Plan Start: 05/23/25 15:35 Freq: Status: Active Protocol: Document 05/23/25 15:36 ZAIRE (Rec: 05/23/25 15:48 ZAIRE [id number]) OT Summary Assessment and Plan Potential Rehabilitation Excellent Potential Analytic Complexity Low at Evaluation Summary OT Impairments Functional Mobility,Grooming,Dressing,Toileting,Bathing ,Toilet Transfers,Shower Transfers,Activity Tolerance Progress Towards Progressing Toward Goals Goals Assessment Summary Pt is 64 yo F who underwent elective R MEG anterior approach. Pt is WBAT and no other hip precautions. At time of eval, pt reports feeling tired and a little light headed. Pt required total A for LB dressing without AE present. Pt reports she uses AE to perform LB dressing at baseline. Pt required setup for grooming and oral hygiene. Pt presents with decreased functional mobility and decreased BADLs. Skilled OT services are appropriate to address these and promote return to PLOF. Pt plans to dc [facility], where she will live on the main level until she can manage the stairs. Pt is already scheduled for outpatient PT services. Goals Grooming Goal Independent Dressing Goal Independent,Hot Knife Foxing Cutter,Sock Aid Toileting Goal Independent Bathing Goal Independent Toilet Transfer Goal Independent,Grab Bars Shower Transfer Goal Independent,Shower Chair,Grab Bars Days to Meet Goals 5 Frequency of Treatment Other frequency 5x/wk Treatment Plan OT Treatment Plan ADL Training,Functional Mobility,Therapeutic Exercises, Discharge Planning Discharge Recommendations OT Discharge Home with Assistance,Outpatient PT Recommendations Home Equipment Needs shower chair Transportation Needs Private Vehicle at Discharge
[2025-05-23] MEDS: DOCUSATE 100 MG CAPSULE PO (21:25)
[2025-05-23] MEDS: SENNOSIDES 8.6 MG TABLET 17.2 MG PO (21:25)
[2025-05-23] MEDS: ASPIRIN EC 81 MG TABLET PO (21:25)
[2025-05-24] MEDS: ACETAMINOPHEN 325 MG TABLET 650 MG PO ×2 (01:36→05:57)
[2025-05-24 05:40] LABS: Add Manual Diff / Slide Review NO; Hematocrit 28.3 % (36-46); Hemoglobin 9.5 g/dL (12.0-16.0); Lymphocytes Absolute Auto 1100 /uL (1100-4500); Mean Corpuscular HGB Conc 33.6 % (30-36); Mean Corpuscular Hemoglobin 26.2 PG (26-34); Mean Corpuscular Volume 78.1 fL (80-100); Platelet Count 284 X10^3/uL (150-400)
[2025-05-24 05:56] LABS: Blood Urea Nitrogen 14 mg/dL (7-17); Calcium 8.3 mg/dL (8.4-10.2); Carbon Dioxide 25 mmol/L (22-32); Chloride 102 mmol/L (98-107); Estimated Glomerular Filt Rate > 60 mL/min (>60); Glucose 149 mg/dL (70-99); HEMOLYSIS < 15 (0-50); Potassium 4.0 mmol/L (3.4-5.1); Sodium 134 mmol/L (137-145)
[2025-05-24] MEDS: LACTATED RINGERS 1,000 ML 100 ML IV (06:01)
--- NOTE | 2025-05-24 06:18 | P.DS_ITS ---
History of Present Illness History of Present Illness Chief complaint: Right MEG (Anterior) Narrative: 64 year old female with a past medical history of SOTERO, GERD, IBS, HTN and rheumatoid arthritis presented to [facility] on 05/23/25 for planned right anterior total hip arthroplsaty by Dr. Herbert. This elective procedure was indicated by chronic right hip arthritis limiting her normal activities such as putting on shoes She had groin pain and knee pain prior to surgery. She is status post left total hip arthroplasty via posterior approach by Dr Her at [facility] in July of 2024. Her medical course was complicated by post operative nausea, vomiting and constipation. On the date of surgery there were no changes to her medical history, medications or allergies. Consent had been obtained and the patient was in agreement to proceed with planned surgery. Discharge Providers Provider Discharge Date: 05/24/25 Primary care physician: Leobardo Zamorano DO Consults: 05/23/25 07:55 Consult to Anesthesiology Routine Comment: Consulting Provider: Anesthesiologist Reason for consultation: Regional block for post operative pain control 05/23/25 12:32 Consult to Discharge Planning Routine Comment: Consult to Occupational Therapy Evaluate & Treat Comment: Physician Instructions: Evaluate and treat Consult to Physical Therapy Evaluate & Treat Comment: Physician Instructions: Evaluate and Treat Discharge provider: GARY Schwarz Dr, MD Summary Hospital Course Hospital Course: On 05/23/25 the patient was brought to the operating room for planned anterior right total hip arthroplasty by Dr Herbert. There were no known intraoperative complications. The patient was transferred to the postoperative recovery area and monitored appropriately. Later the patient was transferred to the acute care unit [facility] for monitoring overnight and physical therapy. There were no acute events overnight. Physical therapy recommendation for discharge home with outpatient physical therapy after evaluation on post operative day 0. Pain was well-controlled on oral acetaminophen. Her right hip pain was described as sore. She did not receive any oxycodone due to nausea after prior total hip arthroplasty and she did not require any anti-emetics overnight. On post operative day 0 she received Docusate and sennosides due to constipation after prior total hip arthroplasty. Deep venous thrombosis prophylaxis was initiated with aspirin 81 mg twice daily. On postoperative day 1, the patient's vital signs were stable, hemoglobin was 9.5 and she was making urine spontaneously. She had not yet had a bowel movement. The patient denied chest pain, dyspnea, fevers, chills, nausea and emesis on postoperative day 1. She was in agreement with preoperative plan to discharge home. Exam Vital Signs (past 8 hours): Oxygen Delivery Method Room Air,CPAP Oxygen Flow Rate 1 Narrative Exam Narrative: Well developed, well nourished, 64 year old female, no acute distress Aquacell dressing is dry and intact to right hip without drainage or hematoma Neurovascular intact to right lower extremity in the femoral and sciatic nerve distributions Objective Labs 05/24/25 05:15 05/24/25 05:15 Labs: Laboratory Results - last 24 hr 05/24/25 05:15 WBC 13.7 H RBC 3.63 L Hgb 9.5 L Hct 28.3 L MCV 78.1 L MCH 26.2 MCHC 33.6 RDW 14.3 Plt Count 284 Neut % (Auto) 83.9 H Lymph % (Auto) 7.9 L Woodruff % (Auto) 7.9 Eos % (Auto) 0.0 L Baso % (Auto) 0.3 Neut # (Auto) 21818 H Lymph # (Auto) 1100 Woodruff # (Auto) 1100 H Eos # (Auto) 0 Baso # (Auto) 0 Sodium 134 L Potassium 4.0 Chloride 102 Carbon Dioxide 25 BUN 14 Creatinine 0.86 Estimated GFR > 60 BUN/Creatinine Ratio 16.3 Glucose 149 H Calcium 8.3 L PFSH Medical History (Updated 05/17/25 @ 14:54 by Stormy Morrison RN) SOTERO on CPAP Anesthesia complication Osteoporosis GERD (gastroesophageal reflux disease) Rheumatoid arthritis Back pain Melanoma IBS (irritable bowel syndrome) Allergies HTN (hypertension) Pre-diabetes Surgical History (Updated 05/16/25 @ 08:55 by Stormy Morrison RN) Hx of colonoscopy Hx of arthroscopy of shoulder Hx of cholecystectomy History of total left hip replacement (07/21/24) Hx of laminectomy (03/19/23) H/O tubal ligation Hx of breast reduction, elective H/O nasal septoplasty Social History household members: children Smoking Status: Never smoker alcohol intake: current Discharge Assessment & Plan Assessment and Plan Assessment: 64 year old female with a past medical history of obstructive sleep apnea, rheumatoid arthritis, hypertension and GERD is post operative day 1 from a right total hip arthroplasty by Dr. Herbert at [facility] on 05/23/25. The patient is recovering well with appropriate pain control on oral tylenol and is awaiting evaluation by physical therapy with plan for discharge home today.?She has not yet had a bowel movement but was counseled on indications to seek care or call our office. Plan:? * Weightbearing as tolerated to right lower extremity with front wheeled walker? * No hip precautions? * DVT prophylaxis with 81 mg of aspirin twice daily for 6 weeks? * Continue multimodal analgesia with Tylenol, meloxicam and oxycodone?if needed * Bowel regimen - docusate and sennosides * Physical therapy evaluation and treatment today? * Follow up with orthopedics 2 weeks post operatively? * All post operative medications ordered at pre operative visit? * Ice to surgical site as needed? Discharge Plan Discharge Plan Patient Disposition: Home Provider Discharge Comment: Take aspirin 81 mg twice daily for 6 weeks to prevent blood clots. This medication is not for pain Take docusate sodium (over the counter stool softener) until you have a bowel movement after surgery Take tylenol and meloxicam for pain control. If this regimen is insufficient, call our office for further guidance Meloxicam can increase your blood pressure. Monitor for headaches, blurry vision, dizziness, chest pain and shortness of breath Call our office if you have nausea and vomiting limiting your ability to eat when you return home Your post operative medications were sent to the [facility] in [place] Follow up is scheduled with Lynsey HERNANDEZ for 06/09 at 10 am Discharge orders & Medications Discharge Orders: Discharge (Order); Ordered 05/24/25 Ordered By: Perla Dickens Prescriptions: New aspirin 81 mg capsule 81 mg PO BID 42 Days Qty: 84 0RF Continued fluconazole 100 mg tablet 100 mg PO DIRECTED Patient Comments: Takes one tab every Friday losartan-hydrochlorothiazide 50-12.5 mg tablet 1 tab PO DAILY fexofenadine 180 mg tablet 180 mg PO DAILY multivitamin Tablet 1 tab PO DAILY losartan 25 mg Tablet 25 mg PO DAILY hydrochlorothiazide 25 mg Tablet 25 mg PO DAILY meloxicam 7.5 mg tablet 7.5 mg PO DAILY PRN (Reason: post-op pain) Qty: 30 0RF pantoprazole 40 mg tablet,delayed release (DR/EC) 40 mg PO DAILY Qty: 30 0RF Follow up/Referrals: Leobardo Zamorano DO [Primary Care Provider, Family Practice] Paulino Herbert MD [Physician, Orthopedic Surgery] Diet/Activity/Treatments Diet: Diet as Tolerated and Low-sodium Activity: You are weight bearing as tolerated to the right lower extremity with a front wheeled walker You have no hip precautions Ice to right hip as needed and instructed at your preoperative visit Limit your activity to no more than 1000 steps per day for the first 7 days after surgery Skin/Wound/Dressing Care Dressing: You have a waterproof dressing intact to your right hip Leave the dressing in place until your follow up visit in 2 weeks If the dressing becomes saturated or disrupted call our office for further guidance Visit Report/Discharge Packet Instructions: DI for Hip Replacement Stand Alone Forms: Patient Portal/API Print Language: Bulgarian Discharge Data Primary Care Provider: Leobardo Zamorano Attending Provider: Paulino Herbert Charge Codes Discharge inpatient/observation: [id number]
--- NOTE | 2025-05-24 08:53 | CM.DANOTE ---
Initial DCP Assessment Note. Review EMR and PT Interview. Met with patient at bedside to discuss discharge needs.PT is alert x 4 sitting up in chair. Independent with walker. Pt's Vani bee, will be taking patient home with her. Payor:? Ander Feng PCP: Dr. Zamorano Summary & Plan:?05/23 Elective Right Total Hip Replacement. Plan: D/C home with Vani BEE. Discharge Planning/Care Management CM Discharge Assessment Start: 05/23/25 11:18 Freq: Status: Active Protocol: Document 05/24/25 08:50 (Rec: 05/24/25 08:52 [id number]) Discharge Planning Assessment Assigned Discharge Odette Hernadez RN CM Mental Health Aide Provider Dr. Zamorano Insurance Ander Advance Directives? No History Provided By Patient Has Patient been No admitted in last 30 days? Prior Living House Arrangements Household Members children Type of Drives own vehicle transporation used prior to admit Independent with ADL Yes: with walker 's Is patient alert and Yes oriented? Caregiver for No Another DME Already Rented / FWW / Walker Owned Barriers to No Discharge Comment Home with Vani BEE. Discharge Plan Home Review Status In Process Please Provide Date 05/24/25 Initial DC Assessment Was Performed Next Review Type Continued Stay Review Pre-Anesthesia Assessment Start: 05/16/25 07:53 Freq: Status: Complete Protocol: Document 05/16/25 07:53 CAB (Rec: 05/16/25 09:37 CAB [id number]) Pre-Anesthesia Assessment PAC Comment Phone assess 05/15/25 Patient Information Phone Assessment Reviewed Via Assessment Completed Patient With Diagnostic Results BMP/CMP,CBC,EKG Comment Labs/EKG @ [facility] 02/16/25 Primary Care Leobardo Zamorano Provider Comment Pre-op 12/21/24 scanned and in surgery folder Seen Specialist in Yes Last 12 Months Specialist Seen Rolloff Truck Driver,Orthopedist,Other Comment Rheumatology note scanned and in surgery folder Primary Language Luxembourgish Preferred Language Luxembourgish Ostomy Rn Required No Height 175.26 cm Weight 121.563 kg Body Mass Index (BMI 39.5 ) Hearing Ability Normal Visual Impairment No Limitations Visual Assist Glasses Dentition Type Teeth, Natural Present,Teeth, Missing Barriers to Learning None Other Aids No Hx Anesthesia Yes: PONV, Hard to wake up Reactions Hx Family Anesthesia No Reaction Hx Malignant No Hyperthermia Hx Blood No Transfusions Hx Blood Transfusion No Reaction Anesthesia Review No Requested Financial Institution Vice President No alcohol intake current Alcohol intake holidays/special occasions only frequency Smoking Status Never smoker Substance Use Type [ does not use #R] Pain Present Pain Reported Musculoskeletal Difficulty Walking,Joint Pain Symptoms History of Falling ( No Recent or History of ) Patient is No completely paralyzed or completely immobile Mental Status Oriented to own ability Is patient on oxygen No ? Does patient have No GREENBERG/SOB Hx Sleep Apnea Yes CPAP/BIPAP use prescribed and used routinely Will Bring CPAP/ Yes BIPAP DOS Currently Taking a No Beta Dianne Can You Climb a Yes Flight of Stairs Without SOB Hx Chest Pain No Hx SOB No Hx Syncope or No Dizziness Anti-Coagulant No Therapy Has a Rolloff Truck Driver Yes: Last visit 11/19/[address] Leon Cardiac Testing No: Echo 07/21/24 @ [facility] Hx Pacemaker/ICD No Pacemaker Rep No Required? Cardiac Clearance No Received Comment Cardiac records scanned and in surgery folder Diet Type At Home Regular Dysphagia No Gastrointestinal Reflux Symptoms Urinary Catheter No Present Hx Urinary Self No Catheterization Diabetes No: Pre-diabetes HgbA1C 5.8 Date 02/16/25 Patient No Lactating No Hx Drug Resistant No Organism Presence of external Yes: CPAP, Left hip or internal medical devices? Month and year 06/08 received flu vaccine Received a COVID Yes vaccine? Marital Status / Lives With friend(s) Current Living House Arrangements Comment Will be moving to live w/daughter in [place] Support System Family Comment Will live w/daughter who will assist with care at ME Does the Patient Yes Have Assistance After Surgery Patient Discharge Return Home Plan Description Comment Pt advised same day surgery per surgeon Feels Safe in Yes Current Environment Been Physically Hurt No or Threatened By a Person in Current Environment Do you have thoughts None of harming yourself or others? Are you currently No considering suicide? Do you have a plan No Plan to hurt yourself or others? Do You Have Any No Spiritual Beliefs That May Affect Your HC Choices? Do You Have Any No Cultural Practices That May Affect Your HC Choices? Comment Felix Who Can We Speak to Family, friends About Patient's Care Identifying Code for Declines to issue Release of Patient Information Health Care Proxy/ Vani (daughter) Next of Kin Health Care Proxy [phone] Phone Number Emergency Contact Vani (daughter) Name Emergency Contact [phone] Phone Number Advance Directives? No Power of Enrolled Agent No PAC Instructions Assistance for 24 hours post-op,Bring CPAP/BIPAP,Do not shave/clip surgical site,Durable medical equipment, Medications to take/avoid,No ETOH/petroleum product on skin DOS,NPO,Post-op transportation,Pre-surgical wash, Sturdy shoes/comfortable clothes,Do not bring valuables and remove jewelry
[2025-05-24] MEDS: ASPIRIN EC 81 MG TABLET PO (09:39)
[2025-05-24] MEDS: DOCUSATE 100 MG CAPSULE PO (09:39)
[2025-05-24] MEDS: MULTIVITAMIN 1 TABLET 1 TAB PO (09:41)
[2025-05-24] MEDS: PANTOPRAZOLE DR 40 MG TABLET PO (09:41)
[2025-05-24] MEDS: LORATADINE 10 MG TABLET PO (09:41)
[2025-05-24 09:43] VITALS: BP 107/45; PULSE 70; RESP 15; TEMP 36.6; O2SAT 97
--- NOTE | 2025-05-24 09:55 | PT.IPTN ---
Current Diagnoses Unilateral primary osteoarthritis, right hip (05/23/25) Surgery Performed Operation Date: 05/23/25 08:00 Actual Procedures p Total Hip Arthroplasty/Anterior Approach(Right) - Paulino Herbert MD Physical Therapy Treatment Note M2 PT-IP Current Condition Start: 05/23/25 14:15 Freq: NEEDED Status: Discharge Protocol: Document 05/23/25 14:15 [facility] (Rec: 05/23/25 15:13 [facility] [id number]) Physical Therapy Current Condition Current Condition Evaluation Date 05/23/25 Treatment Diagnosis R MEG ant M3 PT-IP Subjective Start: 05/23/25 14:15 Freq: NEEDED Status: Discharge Protocol: Document 05/24/25 09:55 AB (Rec: 05/24/25 13:09 AB [id number]) Subjective Physical Therapy Visit Type Type Treatment Note Visit Start Time 09:55 Visit Stop Time 10:20 Number of INFECTION CONTROL NURSE Visits 0 Physical Therapy Visit Comments Patient Comments agreeable to do PT Therapy Pain Assessment Pain When Pain Assessed At Rest Pain Present Pain Present Pain Reported Location Right Hip Intensity 3 Scale Used Numeric (0 - 10) Pain Management Apply Cold,Distraction,Modification of Treatment,Re- Techniques positioning,Timing of Activity with Medications M4 PT-IP Mobility and Gait Start: 05/23/25 14:15 Freq: NEEDED Status: Discharge Protocol: Document 05/24/25 09:55 AB (Rec: 05/24/25 13:09 AB [id number]) PT-Bed Mobility Assessment Supine to Sit Supine to Sit Standby Assistance Sit to Supine Sit to Supine Standby Assistance PT-Transfer Assessment Sit to and From Stand Sit to and from Contact Guard Assistance,1 Person Assistance,Use of Stand Upper Extremities Equipment Transfer Assistive Gait Belt,Front Wheeled Walker Device Orthotic/Prosthetic No Devices or Brace: Transfers Transfer Destination Bed,Chair Transfer Technique ambulated Transfer Ability Level of Assist Standby Assistance,Contact Guard Assistance,1 Person Assistance,Use of Upper Extremities Comments Mobility Comments pt sitting on the chair and daughter in room. pt agreed to do PT. daughter confirmed caregiver yesterday and no concerns. pt completed sit to stand CGA with heavy UE use and pt tends to throw whole body forward to get up. pt also has RLE extended forward. pt ambulated to EOB using FWW CGA and cues for safety. completed sit<>supine SBA. educated pt on sit<>stand techniques for trunk control and steadiness with initial standing. pt completed sit <>stand from EOB x 3 reps SBA to CGA. pt ambulated in the hallway ~ 75 ft using FWW initial CGA. with slight R knee buckling during end stance phase. cued pt for R quads activation and completed ambulation with steadier gait SBA. pt ambulated back to her room and sat on chair. cued for controlled sitting on chair. completed sit <>stand from chair SBA. positioned pt on the chair. call light and table placed within reach. pt and daughter without further concerns. Gait Assessment Gait Gait Assistance Standby Assistance,Contact Guard Assist Required: Distance (Feet) 75 Able to Maintain Yes Weight Bearing Status During Gait Assistive Devices Assistive Device Gait Belt,Front Wheeled Walker Orthotic/Prosthetic No Devices or Brace: Gait Deviations General Gait Pattern Antalgic,Decreased Stride Length,Decreased Feet Clearance Factors Limiting Gait Function Factors Limiting Decreased Activity Tolerance,Decreased Strength, Gait Function Difficulty Following Directions,Limited Range of Motion ,Pain,Poor Balance,Poor Safety Awareness M5 PT-IP Objective Assessments Start: 05/23/25 14:15 Freq: NEEDED Status: Discharge Protocol: Document 05/23/25 14:15 [facility] (Rec: 05/23/25 15:13 [facility] [id number]) Orientation Orientation/Cognition Level of Alertness Alert Language Function No Deficits Noted Ability Safety Awareness Understands Safety Issues Memory Description No Deficits Noted Gross Range of Motion Lower Extremity ROM Assessment Right Impaired Strength Lower Extremity Strength Assessment Right Impaired Hip 3/5 grossly M6 PT-IP Treatment Start: 05/23/25 14:15 Freq: NEEDED Status: Discharge Protocol: Document 05/24/25 09:55 AB (Rec: 05/24/25 13:09 [id number]) Physical Therapy Treatment Education Education Provided Safety M7 PT-IP Assessment and Plan Start: 05/23/25 14:15 Freq: NEEDED Status: Discharge Protocol: Document 05/24/25 09:55 AB (Rec: 05/24/25 13:09 AB [id number]) PT Summary Assessment and Plan Potential Rehabilitation Fair Potential Summary Impairments Pain,ROM,Strength,Balance,Coordination,Sensation,Tone, Cognition,Bed Mobility,Transfers,Gait,Activity Tolerance Progress Towards Slow Progress due to Activity Tolerance Goals Assessment Summary pt requiring SBA to CGA with mobility using FWW and plans to go home with daughter to assist her. pt has outpt PT set up. Caregiver training was conducted yesterday and daughter has no further concerns. Goals Bed Mobility Goal Independent Transfer Goal Independent Gait Goal Independent,Front Wheel Walker Gait Distance 100ft Other Goals up/down 5 steps SBA 1 rail CGA Days to Meet Goals 5 Frequency of Treatment Frequency Of Twice a Day Treatment Treatment Plan Physical Therapy Bed Mobility Training,Transfer Training,Gait Training, Treatment Plan Therapeutic Exercise,Balance Retraining,Discharge Planning,Neuromuscular Re-ed,Manual Therapy Weight Bearing Status Weight Bearing Weight Bear as Tolerated Status Allowed Weight RLE WBAT Bearing Amount ( enter % or #) (%) Recommendations To Nursing Amount of Assist 1 Person Assist Needed Discharge Recommendations PT Discharge Home with Assistance,Outpatient PT Recommendations Transportation Needs Private Vehicle at Discharge - PT assist 1
--- NOTE | 2025-05-24 11:18 | PC.NURSE ---
Discharge Note Patient A&O, VSS, RA, no complaints of pain/discomfort. Discharge packet reviewed with patient, all questions/concerns addressed. PIV discontinued. Patient able to dress self and pack all belongings. Patient taken down via wheelchair to POV.
== END 2025-05-24 11:00 | disposition home or self-care (01) ==
LOC: OR 10:42 → AC 11:09
PROVIDERS: Physician Assistant Surgical; PCP Family Medicine; Referring Provider Orthopaedic Surgery Adult Reconstructive Orthopaedic Surgery; Visit Provider Orthopaedic Surgery Adult Reconstructive Orthopaedic Surgery
PROC: (CPT 27130; principal; 2025-05-23 08:00)
DX: M16.11 Unilateral primary osteoarthritis, right hip (principal); M25.751 Osteophyte, right hip
CPT/HCPCS: 27130; 36415; 73502; 76000; 80048; 85025; 97110; 97116; 97162; 97165; 97530; C1776; C1713; J0131; J0687; J0689; J1100; J1171; J1885; J2250; J2405; J2704; J3010; J3410; J7050; J7120